=== PATIENT | male | born 1950 | race Hispanic/Latino ===

== ENCOUNTER → 2016-10-11 | Outpatient (REF) | payer MEDICARE ==
[~2016-10-11] MED LIST: ATOR40TA59; CPR500T PO; GLIM4TAB; INSU100I10 SQ; LEVO25TA5 PO; METF500T4 PO; OMEP20CA12; RANI150T15 PO
== END ==
LOC: LAB 09:28
PROVIDERS: ATTEND Family Medicine
DX: E11.9 Type 2 diabetes mellitus without complications (principal); M79.1 Myalgia; H90.42 Sensorineural hearing loss, unilateral, left ear, with unrestricted hearing on the contralateral side
CPT/HCPCS: 82306; 83036

== ENCOUNTER → 2016-10-19 | Outpatient (CLI) | payer MEDICARE ==
--- NOTE | 2016-10-19 11:27 | Diagnostic Imaging Report ---
INDICATION: MRI clearance COMPARISON: None. FINDINGS: Single AP view of the face demonstrates no metallic foreign body within the orbits. There is a metallic foreign body within the right upper molar consistent with amalgam. There was a second metallic foreign body overlying the nasal septum of uncertain location. IMPRESSION: 1. No metallic foreign body seen within the orbits. 2. Midline metallic foreign body of uncertain significance and/or location overlying the nasal septum. Consider lateral view. Dictated by: Dictated on workstation # [id number]
== END ==
LOC: LAB 10:49
PROVIDERS: ATTEND Family Medicine
DX: Z01.818 Encounter for other preprocedural examination (principal); E11.9 Type 2 diabetes mellitus without complications
CPT/HCPCS: 36415; 70140; 82565; 84520

== ENCOUNTER → 2016-10-21 | Outpatient (CLI) | payer MEDICARE | LOC: RAD 08:52 | PROVIDERS: ATTEND Family Medicine | DX: Z53.8 Procedure and treatment not carried out for other reasons (principal) ==

== ENCOUNTER → 2016-10-26 | Outpatient (CLI) | payer MEDICARE ==
[~2016-10-26] MED LIST changes: +diphenhydrAMINE 50 MG/ML INJ (BENADRYL) IV ONE; +diphenhydrAMINE 50 MG/ML INJ (BENADRYL) ONE
--- NOTE | 2016-10-26 10:11 | Diagnostic Imaging Report ---
INDICATION: Hearing loss. CT brain obtained pre-and post IV contrast. Patient was given Benadryl for history of allergy. FINDINGS: There were no extra-axial fluid collections. No intracranial hemorrhage. No intracranial mass or mass effect. No midline shift. The ventricles are normal in size and position. There are no enhancing intracranial lesions. Calvarial windows show no bony abnormalities. Mastoid air cells are well aerated. There are no enhancing intracranial lesions. IMPRESSION: Negative CT brain pre-and post IV contrast. Consider MRI with IAC protocol for more sensitive evaluation if clinically warranted. Dictated by: Dictated on workstation # [id number]
== END ==
LOC: RAD 08:47
PROVIDERS: ATTEND Family Medicine
DX: H90.42 Sensorineural hearing loss, unilateral, left ear, with unrestricted hearing on the contralateral side (principal)
CPT/HCPCS: 70470; J1200; Q9967